=== PATIENT | female | born 1945 | race Caucasian/White ===

== ENCOUNTER 2021-10-31 08:43 | Observation (INO) | payer MEDICARE, OTHER, SELFPAY ==
[2021-10-31] VITALS (16 sets, daily range): BP systolic 106–141; BP diastolic 51–82; PULSE 58–72; RESP 12–18; TEMP 36.1–36.9; O2SAT 92–96; BMI 55.4
[2021-10-31] MEDS: Lactated Ringers 1,000 ML 15 ML IV (07:40)
--- NOTE | 2021-10-31 08:40 | PN.ORTHO_ITS ---
Subjective Subjective The patient was seen and examined postoperatively in the PACU. She is resting comfortably. Her pain is controlled. She denies any acute numbness tingling or weakness. Objective Data Objective Data Vital Signs: Vital Signs Temp Pulse Resp BP Pulse Ox 98.4 F 63 16 139/82 H 96 10/31/21 08:05 10/31/21 08:05 10/31/21 08:05 10/31/21 08:05 10/31/21 08:05 Oxygen Delivery Method Room Air Weight: 293 lb 3.437 oz Body Mass Index (BMI) 55.4 Lab / Micro Data Result Diagrams: 11/01/21 06:15 11/01/21 06:15 Physical Exam Const alert, oriented x3 and no apparent distress General Appearance: cooperative and comfortable HEENT normocephalic and head/scalp atraumatic Eyes EOMs intact bilaterally and conjunctivae normal Neck full ROM General: normal visual inspection Chest inspection of chest normal and palpation of chest normal Resp normal respiratory effort and normal air movement Cardio regular rate, regular rhythm and peripheral pulses 2+ throughout GI soft to palpation, non-tender and non-distended Back/Spine Back/Spine Narrative: Dressings clean dry and intact Cervical Spine: cervical ROM normal Thoracic Spine / Upper Back: normal to inspection Lumbar Spine / Lower Back: normal to inspection Extremity normal to inspection, full ROM, normal capillary refill, no clubbing, cyanosis or edema and no calf tenderness Skin no rashes or lesions noted General Skin Exam: no breakdown Neuro oriented x3, CN's II-XII intact bilaterally, moves all extremities, no focal motor deficits, no sensory deficits noted and deep tendon reflexes 2+ bilaterall y Motor Exam: strength 5/5 throughout and muscle tone normal throughout Assessment & Plan Assessment/Plan (1) Lumbar spondylosis: PLAN: Okay to admit for observation See orders Discharge planning, likely home tomorrow
--- NOTE | 2021-10-31 08:40 | PCM.OPRPT ---
Problems Associated Problem List Diagnoses (1) Lumbar spondylosis: Report of Operation Date of Procedure: 10/31/21 Pre-Operative Diagnosis: 1. Lumbar stenosis, spondylosis 2. Chronic back pain Post-Operative Diagnosis: 1. Lumbar stenosis, spondylosis 2. Chronic back pain Surgery/Procedure Performed:: 1. T9-10 partial bilateral laminectomies 2. Dorsal column stimulator paddle lead placement 3. Subcutaneous placement of dorsal column stimulator generator 4. 1 hour of complex programming postoperatively 5. Neurophysiologic monitoring bilateral upper and bilateral lower extremities Description of Surgical Findings:: The patient is a 75-year-old female with intractable back and leg pain. The patient has tried and failed nonoperative treatments including medications, physical therapy and injections. She is opted for operative intervention understanding the risk to include but not limited to bleeding, infection, damage to nerves arteries and veins, possibility of spinal fluid leak, paralysis, nerve palsy, hardware failure, continued pain, need for further surgery, deep vein thrombosis, pulmonary embolism, risk of stroke, heart attack or . The patient was identified in the preoperative holding area. There she received preoperative IV antibiotics Ancef and was then transferred to the operating suite. Once in the operating suite after general endotracheal anesthesia was established the patient was transferred to the [place] operating table in the prone position. All bony prominences were padded accordingly. The thoracolumbar spine was prepped and draped in a standard surgical fashion. An incision was made over the thoracolumbar spine centered over the T9-10 interlaminar space and taken down to the thoracic fascia. The fascia was divided and subperiosteal dissection was taken down to the level of the bilateral T9-10 facet joints. Partial bilateral laminectomies were performed at the T9-10 interspace with the inferior part of the lamina of T9 and the superior part of the lamina of T10. At this point a paddle lead was placed spanning from T8 inferiorly. It was then anchored to the fascia using standard anchors with silk suture. A second incision was made over the right iliolumbar region for the battery pocket. Wires from the stimulator were then passed subcutaneously with a passing device to the battery pocket and connected to a new battery/generator. Both incisions were then thoroughly irrigated and closed with #1 Vicryl for the fascia, 2-0 Vicryl for subcutaneous, and 2-0 nylon for skin. A sterile dressing was applied with 4 x 4's ABD and tape. Sponge instrument and needle counts were correct at the end of the case. Neurophysiologic monitoring was maintained at baseline throughout the duration of the case. The patient was extubated and taken to the PACU without incident. Then 1 hour was spent with complex programming with the patient recovered Surgeon: Aiden Henderson Type of Anesthesia: General Estimated Blood Loss (mL): 30 cc Fluids Replaced: 1200 cc Grafts/Implants Used: [employer] Complications None Admit VTE Documentation VTE Present on Admission: No
--- NOTE | 2021-10-31 08:40 | PCM.DC.SUM ---
Providers Date of Admission: 10/31/21 Primary Care Physician: Dr. Kusum Narvaez MD Reason For Visit: thoracic 9-10 laminectomy Diagnosis Discharge Diagnosis (1) Lumbar spondylosis: Status: Acute Code(s): M47.816 - Spondylosis without myelopathy or radiculopathy, lumbar region Medications at Discharge Home Medications allopurinol 300 mg PO DAILY 10/23/21 atenolol 50 mg PO DAILY 10/23/21 atorvastatin 20 mg PO QHS 10/23/21 baclofen 10 mg PO DAILY 10/23/21 baclofen 20 mg PO QHS 10/23/21 benazepril 20 mg PO QHS 10/23/21 duloxetine [Cymbalta] 60 mg PO BID 10/23/21 lysine 1,000 mg PO DAILY 10/23/21 pantoprazole 40 mg PO DAILY 10/23/21 pregabalin [Lyrica] 200 mg PO DAILY 10/23/21 pregabalin [Lyrica] 400 mg PO QHS 10/23/21 hydrocodone-acetaminophen 1 tab PO Q6H 7 Days #28 tab 10/31/21 Hospital Course Operations - (T9-10 laminectomy, implantation of spinal cord stimulator lead and generator) Summary of Care Provided Minutes Spent on Discharge: 15 Hospital Course: The patient is a 75-year-old female who underwent T9-10 laminectomy with implantation of permanent spinal cord stimulator lead and generator on 10/31/2021. She was subsequently admitted for observation. The hospitalist was consulted for medical management. The patient progressed well. Her pain was controlled and she was mobilizing well. The patient did have a drop in O2 sats on postop day 1. No other significant medical issues were reported. She was subsequently discharged home on 11/01/2021 to follow-up with Dr. Henderson in 3 weeks. Physical Exam Const alert, oriented x3 and no apparent distress General Appearance: cooperative and comfortable HEENT normocephalic and head/scalp atraumatic Eyes EOMs intact bilaterally and conjunctivae normal Neck full ROM General: normal visual inspection Chest inspection of chest normal Resp normal respiratory effort and normal air movement Cardio regular rate and peripheral pulses 2+ throughout GI soft to palpation, non-tender and non-distended Back/Spine Back/Spine Narrative: Dressings clean dry and intact. Incisions well approximated with interrupted sutures in place. No tenderness erythema drainage or fluctuance Cervical Spine: cervical ROM normal Thoracic Spine / Upper Back: normal to inspection Lumbar Spine / Lower Back: normal to inspection Extremity normal to inspection, full ROM, normal capillary refill, no clubbing, cyanosis or edema and no calf tenderness Skin no rashes or lesions noted General Skin Exam: no breakdown Neuro oriented x3, CN's II-XII intact bilaterally, moves all extremities, no focal motor deficits, no sensory deficits noted and deep tendon reflexes 2+ bilaterally Motor Exam: strength 5/5 throughout and muscle tone normal throughout Weight / BMI Weight Weight: 293 lb 3.437 oz Body Mass Index (BMI) 55.4 ABG / Lab / Microbiology Data Result Diagrams: 11/01/21 06:15 11/01/21 06:15 D/C Instructions Discharge Diet: No restrictions Lifting Restricted to (Lbs): 5 Lifting Restrictions: No bending, twisting, or lifting greater than 5 pounds. No reaching arms a Call your doctor if your incision/area has: Continuous Slow Oozing, Sudden Increased Bleeding, Increased Pain/ Swelling, Increased Redness, Foul Smelling Discharge and Swelling at the incision site Call your doctor if you observe: Fever of 101 or Higher, Coldness, Increased Pain, Numbness or Tingling, Change in Color, Inability to urinate, Inability to have a bowel movement, Using more than 1 pad per hour, Shortness of breath, Dizziness, Fainting spells, Swelling in the ankles, Chest pain, Prolonged hiccupping, Increased palpitations (irregular heartbeat), Calf discomfort and Uncontrolled pain Remove Dressing in: Daily Cleanse incision/area with: Do not get Incision Wet and Keep Dressing Clean & Dry Additional Dressing/Incision Instructions: Change dressing daily. Iodine to incision, gauze and tape. [place] dressing to shower Please Follow Up With: Aiden Henderson DO When: 3 weeks Meaningful Use Info Meaningful Use Diagnoses (Choose all that apply): None applicable Discharge Plan Admission Admit Date/Time: 10/31/21 08:43 Attending Provider: Aiden Henderson Primary Care Provider: Kusum Narvaez Consulting Providers: Isidro Claire Instructions Additional Instructions / Restrictions: 1. During your procedure, you received sedation through your IV. Please follow these instructions for the next 24 hours: Do not drive a motor vehicle, do not drink any alcoholic beverages, and do not sign any legal documents or make personal or business decisions. A responsible adult should stay with you at least 6 hours after the procedure. 2. Keep your surgical site/incision clean and the dressing dry and intact. You may sponge bathe, but no showering or sitting in a bathtub during your trial or for one week after the permanent implant. You may use an ice pack at the surgical site to reduce any swelling or discomfort. 3. Monitor the incision site for any signs or symptoms of infection. Watch for redness, excessive swelling or drainage, or continued pain at the incision site after 3 days. Contact your physician immediately for a fever, chills or a temperature of 101.5? F or greater. 4. Take your medication exactly as prescribed by your physician. Do not attempt to wean yourself off any of your medications even though your pain is improving. This process needs to be carefully monitored by your doctor. Take any antibiotics prescribed exactly as directed and until they are gone. 5. Avoid stretching, bending, pulling, twisting or any sudden movements. Do not bend or twist at the waist. Do not raise your arms above your head; however, you may brush your hair or scratch your head, but nothing higher than that. Any movements higher than that could cause your electrode wires to move from their current position. No not lie on your stomach. Do not bend at the waist to put your shoes on; you must lift your legs up to do this. 6. No lifting greater than 5 pounds. A gallon of milk weighs more than 5 pounds, so you may not lift this. Try to be careful. Any falls could dislodge the leads. 7. Do not operate a motor vehicle, equipment or a power tool while your stimulator is on. If you need to use any equipment, you must turn your stimulator off first. As a passenger in a motor vehicle, you may use your stimulator. 8. Do not have any manipulation done by a chiropractor or any other physician without first consulting with the physician who placed your spinal cord stimulator. 9. Without movement, you may note changes in the intensity of the stimulator. For example, you may notice a different stimulation when you are standing than when you are sitting or lying down. This is normal the first few weeks following the implant and will stabilize over time. 10. Please contact our office if you are even scheduled for a CT scan or an MRI. 11. Please call us if you have any questions, problems or concerns. Discharge Orders/Prescriptions Prescriptions: New hydrocodone-acetaminophen 5-325 mg tablet 1 tab PO Q6H 7 Days Qty: 28 RF: 0 Continued atorvastatin 20 mg Tablet 20 mg PO QHS RF: 0 lysine 1,000 mg Tablet 1,000 mg PO DAILY RF: 0 baclofen 10 mg Tablet 10 mg PO DAILY RF: 0 baclofen 10 mg Tablet 20 mg PO QHS RF: 0 pantoprazole 40 mg Tablet,Delayed Release (Dr/Ec) 40 mg PO DAILY RF: 0 benazepril 20 mg Tablet 20 mg PO QHS RF: 0 allopurinol 300 mg Tablet 300 mg PO DAILY RF: 0 atenolol 50 mg Tablet 50 mg PO DAILY RF: 0 duloxetine [Cymbalta] 60 mg Capsule,Delayed Release(Dr/Ec) 60 mg PO BID RF: 0 pregabalin [Lyrica] 200 mg Capsule 200 mg PO DAILY RF: 0 pregabalin [Lyrica] 200 mg Capsule 400 mg PO QHS RF: 0 Referrals / Follow Up: Aiden Henderson DO [STAFF PHYSICIAN] - Kusum Narvaez MD [Primary Care Provider] -
--- NOTE | 2021-10-31 09:15 | RAD_ITS ---
STUDY: X-RAY - LUMBAR SPINE REASON FOR EXAM: Female, 75 years old. T9-T10 LAMINECTOMY TECHNIQUE: AP fluoroscopic view(s) of the lumbar spine were obtained. 6 images. 31.6 seconds of fluoroscopy time. COMPARISON: None FINDINGS: Neurostimulator leads overlie the lower thoracic spine extending from approximately T7-T8 to T9-T10 level. RAD/Spine 1 View Any Level IMPRESSION: Fluoroscopic guidance for neurostimulator lead insertion. Electronically Signed: Silas Palomino MD ([place]) at 18:51 EDT ,
[2021-10-31] MEDS: Cefazolin 2 GM in 0.9% Normal Saline 100 ML IV (09:38)
[2021-10-31] MEDS: THROMBIN (RECOMBINANT) 20,000 UNIT VIAL 20000 UNIT TOPICAL (10:00)
[2021-10-31] MEDS: Lactated Ringers 1,000 ML 100 ML IV ×2 (10:46→16:17)
--- NOTE | 2021-10-31 15:25 | PCM.CONS.GEN ---
Assessment & Plan Assessment/Plan (1) Lumbar spondylosis: PLAN: 1. 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 Henderson. She had 1 hour complex neurophysiologic monitoring and programming. Continue in splint with spirometry. Patient had Coello catheter monitor urine output. Patient complain of lower abdominal wall pain probably positional. CK ordered. Patient on Lyrica and duloxetine continued. Pain control. PT and OT. 2. Hypertension: Blood pressure in normal range 116/51. Heart rate 63.9. EKG recent shows normal sinus rhythm 58 beats per hour. Patient does not have chronic cardiac disease or stroke or peripheral arterial disease. On lisinopril and atenolol. 3. Chronic intermittent stable asthma: No recent exacerbation. Continue incentive spirometry. DuoNeb ordered as needed for shortness of breath or wheezing. 4. Dyslipidemia: On atorvastatin. 5. VTE prophylaxis: Bilateral SCDs HPI Consult Data Date of Consult: 10/31/21 HPI Narrative Reason for Consultation: Perioperative management of multiple comorbidities. HPI Narrative: KRISTA WESTON, is a 75 F has history of significant medical and surgical history of asthma, chronic back pain, chronic urge bladder incontinence, dyslipidemia, gout, GERD and hypertension. She denies chronic heart disease including coronary artery disease, heart failure or arrhythmia or valvular heart disease. Denies a stroke and diabetes mellitus. Patient has asthma but no recent exacerbation. She has history of small bowel obstruction which required exploration laparotomy and adhesiolysis. Patient also had bilateral inguinal hernia repair. Patient complaining of bilateral lower abdominal pain looks most probably due to positional from surgery. No shortness of breath or chest pain, palpitation. Patient has Coello catheter, seems just emptied in PACU. Did not pass flatus. No fever Patient has history of chronic back pain with radiation to the leg, sciatica in nature, right worse than left. She also has bilateral leg weakness/numbness due to chronic back pain. It was admitted to [facility] by Dr. Henderson after elective surgery of lumbar stenosis and spondylosis causing chronic back pain. [facility] Medical History (Updated 10/31/21 @ 08:[address] Aiden Henderson, DO) Alcohol use Anxiety Asthma Back pain Balance problem Bladder disease Difficulty swallowing Gastric reflux Gout High cholesterol History of edema History of pain when walking History of rheumatic fever Hx of lipoma Hx of small bowel obstruction Hypertension Injury of back Injury of head and neck Leg cramps Loss of hearing Neuropathy Non-smoker Restless legs Shortness of breath on exertion Spinal cord stimulator status Uses wheelchair Walker as ambulation aid Wears glasses Home Medications allopurinol 300 mg PO DAILY 10/23/21 [History Last Taken Unknown] atenolol 50 mg PO DAILY 10/23/21 [History Last Taken Unknown] atorvastatin 20 mg PO QHS 10/23/21 [History Last Taken Unknown] baclofen 10 mg PO DAILY 10/23/21 [History Last Taken Unknown] baclofen 20 mg PO QHS 10/23/21 [History Last Taken Unknown] benazepril 20 mg PO QHS 10/23/21 [History Last Taken Unknown] duloxetine [Cymbalta] 60 mg PO BID 10/23/21 [History Last Taken Unknown] lysine 1,000 mg PO DAILY 10/23/21 [History Last Taken Unknown] pantoprazole 40 mg PO DAILY 10/23/21 [History Last Taken Unknown] pregabalin [Lyrica] 200 mg PO DAILY 10/23/21 [History Last Taken Unknown] pregabalin [Lyrica] 400 mg PO QHS 10/23/21 [History Last Taken Unknown] hydrocodone-acetaminophen 1 tab PO Q6H 7 Days #28 tab 10/31/21 [Rx Last Taken Unknown] Allergy/AdvReac Type Severity Reaction Status Date / Time adhesive tape AdvReac BLISTERS Verified 10/31/21 14:37 Surgical History History of carpal tunnel surgery of left wrist History of carpal tunnel surgery of right wrist History of cystoscopy History of esophagogastroduodenoscopy (EGD) History of lumbar fusion History of tonsillectomy and adenoidectomy Hx laparoscopic cholecystectomy Hx of appendectomy Hx of colonoscopy Hx of hysterectomy Hx of inguinal hernia repair Hx of left cataract extraction Hx of removal of cyst Hx of right cataract extraction Hx of total knee arthroplasty Hx of total knee arthroplasty Hx of umbilical hernia repair Social History Smoking Status: Never smoker ROS ROS Narrative Constitutional: Chronic weakness. Complain of pain over bilateral lower abdominal wall seems positional. Prolonged prone positioning HEENT: Reports systems reviewed and no addt'l complaints, except as documented Respiratory/Chest: Denies chest pain, shortness of breath at rest or with exertion Gastrointestinal: Denies coffee ground emesis, hematemesis or vomiting Genitourinary: Chronic urge incontinence. Denies burning urination or new urinary tract symptoms Musculoskeletal: Bilateral lower back pain, sciatic in nature as described in HPI. Chronic numbness and tingling. Neurologic: Chronic gait abnormality. Chronic neuropathy and lower leg weakness. Denies seizure-like activity skin: No ulcer. No rash Endocrinology: Reports systems reviewed and no addt'l complaints, except as documented Hematologic/Lymphatic: Reports systems reviewed and no addt'l complaints, except as documented Rest 14 ROS are negative except as mentioned in HPI Physical Exam Narrative General: Alert, Oriented x3, Cooperative, morbid obesity BMI 55.4 kg metered square HEENT: Atraumatic, PERRLA, EOMI, Normocephalic Oral: Deep oropharyngeal structures not clearly visualized. No Gingival or Mucosal Lesions/ Ulcerations Neck: Supple, No JVD, Negative Carotid Bruits Lungs: Air entry diminished in bilateral lung bases. No crepitation/rhonchi Cardiovascular: Regular rate, Regular Rhythm, Normal S1, Normal S2, No murmurs Abdomen: Bowel Sounds Present, Soft, Non Tender, Non-Distended. Bilateral inguinal surgical scar. Laparotomy scar. : Chronic urge incontinence. Coello catheter. No renal angle tenderness. No suprapubic tenderness. Extremities: No edema, Capillary Refill Less than 3 Seconds Skin: No rashes, No breakdown Musculoskeletal/spine: Surgical dressing over lower thoracic area and lumbar area dry. No drainage. Perioperative tenderness of muscle. Neurological: Cranial nerves II-XII grossly intact, DTR 2+/4, muscle strength not checked due to postop day 0. Psych/Mental Status: Normal Affect, Appropriate. Charges/Coding Visit Charges Office Visits / Consults: 94851 OP Consult L4
[2021-10-31] MEDS: Morphine 4 MG/ML Syringe IV (15:54)
[2021-10-31] MEDS: 0.9% Saline Lock 10 ML Syringe IV (16:11)
[2021-10-31 17:11] LABS: Hematocrit 34.7 % (37-47); Hemoglobin 12.1 g/dL (12.0-15.0)
[2021-10-31 17:41] LABS: CPK Total, Creatine Kinase 280 U/L (26-192)
[2021-10-31] MEDS: DULoxetine Hcl 60 MG Capsule PO (21:17)
[2021-10-31] MEDS: Baclofen 10 MG Tablet 20 MG PO (21:17)
[2021-10-31] MEDS: Atorvastatin Calcium 20 MG Tablet PO (21:17)
[2021-10-31] MEDS: Lisinopril 20 MG Tablet PO (21:18)
[2021-10-31] MEDS: Pregabalin 50 MG Capsule 100 MG PO (21:25)
[2021-10-31] MEDS: Pregabalin 75 MG Capsule 300 MG PO (21:25)
[2021-10-31] MEDS: oxyCODONE 5 MG Tablet PO (21:26)
[2021-11-01] VITALS (8 sets, daily range): BP systolic 96–115; BP diastolic 52–69; PULSE 70–110; RESP 16–18; TEMP 36.7–37.1; O2SAT 82–98
[2021-11-01] MEDS: Lactated Ringers 1,000 ML 100 ML IV (02:24)
[2021-11-01 07:29] LABS: Anion Gap 4 (5-15); BUN 20 mg/dL (7-18); BUN/Creat Ratio 19.2 RATIO (10-20); Calcium,Total 7.9 mg/dL (8.5-10.1); Chloride 108 mmol/L (98-107); Creatinine, Serum 1.04 mg/dL (0.55-1.02); EST Glomerular Filtration Rate 55 mL/min (>60); Est Glom Filt Rate - Afr Amer 66 mL/min (>60); Estimated Creatinine Clearance 34.18 ml/min; Glucose 124 mg/dL (74-106); Potassium 4.7 mmol/L (3.5-5.1); Sodium Level 137 mmol/L (136-145)
--- NOTE | 2021-11-01 07:31 | PN.HOSP_ITS ---
Subjective Subjective Patient abdominal pain has much improved although still complain of mild soreness. Coello catheter removed. Patient has not passed bowel movement but has passed flatus. Objective Data Objective Data Vital Signs: Vital Signs Temp Pulse Resp BP Pulse Ox 98.0 F 80 18 115/69 97 11/01/21 02:51 11/01/21 06:00 11/01/21 02:51 11/01/21 02:51 11/01/21 02:51 Oxygen Flow Rate (L/min) 2 Oxygen Delivery Method Nasal Cannula Weight: 293 lb 3.437 oz Body Mass Index (BMI) 55.4 Intake & Output: Intake and Output for Last 24 Hours 10/30/21 10/31/21 11/01/21 23:59 23:59 23:59 Intake Total 1980.00 / 2220.00 300 / 300 Output Total 465 / 640 400 / 400 Balance 1515.00 / 1580.00 -100 / -100 Lab / Micro Data Result Diagrams: 11/01/21 06:15 11/01/21 06:15 Labs: Laboratory Results - last 24 hr 10/31/21 16:45: Total Creatine Kinase 280 H 10/31/21 16:55: Hgb 12.1, Hct 34.7 L 11/01/21 06:15: Sodium 137, Potassium 4.7, Chloride 108 H, Carbon Dioxide 25.0, Anion Gap 4 L, BUN 20 H, Creatinine 1.04 H, Estim Creat Clear Calc 34.18, Est GFR (MDRD) Af Amer 66, Est GFR (MDRD) Non-Af 55 L, BUN/Creatinine Ratio 19.2, Glucose 124 H, Calcium 7.9 L Radiography Diagnostic Testing: Radiology Impression Spine X-Ray 10/31/21 09:15 IMPRESSION: Fluoroscopic guidance for neurostimulator lead insertion. Electronically Signed: Silas Palomino MD ([place]) at 18:51 EDT , Physical Exam Narrative Seen and examined. Patient had some questions regarding to postsurgical care for Dr. Henderson. Communicated to the nurse. General: Alert, Oriented x3, Cooperative, morbid obesity BMI 55.4 kg metered square HEENT: Atraumatic, PERRLA, EOMI, Normocephalic Oral: Deep oropharyngeal structures not clearly visualized. No Gingival or Muco stefanie Lesions/ Ulcerations Neck: Supple, No JVD, Negative Carotid Bruits Lungs: Air entry diminished in bilateral lung bases. No crepitation/rhonchi Cardiovascular: Regular rate, Regular Rhythm, Normal S1, Normal S2, No murmurs Abdomen: Bowel Sounds Present, Soft, Non Tender, Non-Distended. Bilateral inguinal surgical scar. Laparotomy scar. : Chronic urge incontinence. Coello catheter discontinued. No renal angle tenderness. No suprapubic tenderness. Extremities: No edema, Capillary Refill Less than 3 Seconds Skin: No rashes, No breakdown Musculoskeletal/spine: Surgical dressing over lower thoracic area and lumbar area dry. No surgical drain. Mild expected perioperative tenderness of muscle. Neurological: Cranial nerves II-XII grossly intact, DTR 2+/4, muscle strength not checked due to postop day 0. Psych/Mental Status: Normal Affect, Appropriate. Assessment & Plan Assessment/Plan (1) Lumbar spondylosis: PLAN: 1. 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 Henderson. She had 1 hour complex neurophysiologic monitoring and programming. Continue in splint with spirometry. Patient had Coello catheter monitor urine output. Patient complain of lower abdominal wall pain probably positional. CK ordered. Patient on Lyrica and duloxetine continued. Pain control. PT and OT. 11/01: CK is mildly elevated 280. Patient was given IV fluid normal sent 500 mL for saline diuresis. Wait for spontaneous voiding of urine after Coello catheter removal. Patient has some questions regarding postop care with Dr. Henderson, communicated to the nurse. Follow-up with him as instructed. 2. Hypertension: Blood pressure in normal range 116/51. Heart rate 63.9. EKG recent shows normal sinus rhythm 58 beats per hour. Patient does not have chronic cardiac disease or stroke or peripheral arterial disease. On lisinopril and atenolol. 3. Chronic intermittent stable asthma: No recent exacerbation. Continue incentive spirometry. DuoNeb ordered as needed for shortness of breath or wheezing. 4. Dyslipidemia: On atorvastatin. 5. VTE prophylaxis: Bilateral SCDs Patient is going to be discharged. Hospital team will sign off. Charges/Coding Visit Charges OBSV E&M: 97312 Subsequent observation care L2
[2021-11-01] MEDS: Allopurinol 300 MG Tablet PO (08:06)
[2021-11-01] MEDS: DULoxetine Hcl 60 MG Capsule PO (08:06)
[2021-11-01] MEDS: Baclofen 10 MG Tablet PO (08:06)
[2021-11-01] MEDS: Pantoprazole Sodium 40 MG Tablet PO (08:06)
[2021-11-01] MEDS: Pregabalin 50 MG Capsule 200 MG PO (08:10)
--- NOTE | 2021-11-01 11:30 | CASEMGMT ---
RN CM Face to Face with patient for initial transition planning/care coordination assessment. RN CM introduced self and role at [facility]. Patient sitting in chair, alert and oriented. Patient willing to participate in assessment and is able to answer all questions appropriately. Care providers, pharmacy, and demographics verified. Patient wishes to discharge home, denies need for home health at this time. Patient states she has no further needs or concerns at this time. CM to follow for discharge planning needs that may arise. PCP: Brice Specialists: Rod Henderson Pharmacy: [facility] Benef[facility]: yes Living Will/HPOA: yes, Hiram Kellogg LNOK: Living Arrangements: Patient lives with in a mobile home with 5 steps and railing x2 to enter the home. Patient states she was independent for self care prior to surgery Transportation: DME/HHC: Patient states she has shower chair, grab bars, walker, rollator, nebulizer, and step stool with railing at home. No previous HHC or SNF. Disposition Plan: Patient to discharge home with family support and follow-up plans in place. Nenita HERNANDEZ, RN, CM
== END 2021-11-01 13:21 | disposition home or self-care (01) ==
LOC: SDC 12:18 → MS3 12:18
PROVIDERS: Internal Medicine; Admitting Provider Orthopaedic Surgery; PCP Internal Medicine Infectious Disease; Referring Provider Orthopaedic Surgery; Visit Provider Orthopaedic Surgery
PROC: (CPT 63655; principal; 2021-10-31 08:45)
DX: M48.061 Spinal stenosis, lumbar region without neurogenic claudication (principal); E66.01 Morbid (severe) obesity due to excess calories; Z68.43 Body mass index [BMI] 50.0-59.9, adult; G89.29 Other chronic pain; K21.9 Gastro-esophageal reflux disease without esophagitis; M10.9 Gout, unspecified; I10 Essential (primary) hypertension; J45.909 Unspecified asthma, uncomplicated; E78.5 Hyperlipidemia, unspecified; N39.41 Urge incontinence; M47.816 Spondylosis without myelopathy or radiculopathy, lumbar region; Z79.899 Other long term (current) drug therapy; M79.7 Fibromyalgia; M19.90 Unspecified osteoarthritis, unspecified site; R20.2 Paresthesia of skin; M51.36 Other intervertebral disc degeneration, lumbar region; M96.1 Postlaminectomy syndrome, not elsewhere classified
CPT/HCPCS: 63685; 63655; 00300; 36415; 72020; 76000; 80048; 82550; 85014; 85018; 96361; 96365; 96366; 96375; 97162; 99218; C1778; C1820; J7040; J7120; A4216; G0378; J2405; J3490

== ENCOUNTER 2021-11-28 09:34 | Day surgery (SDC) | payer MEDICARE, OTHER, SELFPAY ==
[2021-11-28] VITALS (9 sets, daily range): BP systolic 91–156; BP diastolic 29–97; PULSE 60–77; RESP 15–20; TEMP 36–37; O2SAT 92–100; BMI 55.7
--- NOTE | 2021-11-28 09:51 | PCM.OPRPT ---
Problems Associated Problem List Diagnoses (1) Lumbar spondylosis: (2) Delayed surgical wound healing: Report of Operation Date of Procedure: 11/28/21 Pre-Operative Diagnosis: 1. Delayed wound healing, thoracic, status post spinal cord stimulator implantation Post-Operative Diagnosis: 1. Delayed wound healing, thoracic, status post final cord stimulator implantation Surgery/Procedure Performed:: 1. Thoracic irrigation and debridement, wound exploration, primary closure Description of Surgical Findings:: The patient is a 76-year-old female who underwent implantation of a permanent spinal cord stimulator on 10/31/2021. She followed up in my clinic and was found to have delayed wound healing of the thoracic incision. After discussing the risk benefits and alternatives I recommended she undergo return to the OR for thoracic irrigation, debridement, wound exploration, primary closure. The patient opted for operative intervention understanding the risk to include but not limited to infection, bleeding, damage to nerves arteries and veins, possibility of spinal fluid leak, paralysis, continued pain, need for further surgery, deep vein thrombosis, pulmonary embolism, heart attack, risk of stroke or . The patient was identified in the preoperative holding area. There she received preoperative IV antibiotics, Ancef, and was then transferred to the operative suite. Once in the operative suite after general endotracheal anesthesia was established the patient was transferred to the operating table in the prone position. All bony prominences were padded accordingly. The thoracic spine was prepped and draped in a standard surgical fashion. The previous thoracic midline incision was reopened and taken down to the level of the fascia. A small amount of serous fluid was encountered. This was cultured and sent to the lab. The incision was thoroughly irrigated. Any necrotic tissue was debrided. A 15 blade was used to freshen up the wound margins. Then the fascia was reopened. No significant drainage, purulence, or necrotic tissue was noted. The incision was thoroughly irrigated. The fascia was then closed with #1 Vicryl, subcutaneous with 2-0 Vicryl and skin with 2-0 nylon. A sterile dressing was applied with 4 x 4's ABD and tape. Sponge instrument and needle counts were correct at the end of the case. The patient was extubated and taken to the PACU without incident. Surgeon: Aiden Henderson Type of Anesthesia: General Specimen's removed: Superficial and deep cultures Estimated Blood Loss (mL): 20cc Fluids Replaced: 300cc Complications None Admit VTE Documentation VTE Present on Admission: No
--- NOTE | 2021-11-28 09:51 | PCM.PN.ORT ---
Subjective Subjective The patient was seen and examined postoperatively. She is resting comfortably. Her pain is controlled. She denies any acute numbness tingling weakness or changes in bowel or bladder function. A&O, NAD EOMI, NCAT Abdomen soft and nontender Dressing clean dry and intact Regular rate and rhythm Clear to auscultation bilaterally Extremities: Sensation and motor are intact grossly without focal deficit, pulses and reflexes are normal and symmetric, no tenderness to palpation or edema. Assessment & Plan Assessment/Plan (1) Lumbar spondylosis: PLAN: Okay to discharge home See discharge instructions Follow-up with Dr. Henderson as scheduled (2) Delayed surgical wound healing:
[2021-11-28] MEDS: Lactated Ringers 1,000 ML 15 ML IV (10:06)
[2021-11-28] MEDS: Bupivacaine Mpf 0.5% 30 ML VIAL (11:19)
== END 2021-11-28 14:59 | disposition home or self-care (01) ==
LOC: SDC 09:34 → AC 09:38
PROVIDERS: PCP Internal Medicine Infectious Disease; Referring Provider Orthopaedic Surgery; Visit Provider Orthopaedic Surgery
PROC: (CPT 22830; principal; 2021-11-28 10:50)
DX: M47.816 Spondylosis without myelopathy or radiculopathy, lumbar region (principal); M46.96 Unspecified inflammatory spondylopathy, lumbar region; T81.89XA Other complications of procedures, not elsewhere classified, initial encounter; M47.26 Other spondylosis with radiculopathy, lumbar region; M96.1 Postlaminectomy syndrome, not elsewhere classified; M48.061 Spinal stenosis, lumbar region without neurogenic claudication; M51.36 Other intervertebral disc degeneration, lumbar region; J45.909 Unspecified asthma, uncomplicated; I10 Essential (primary) hypertension; E78.00 Pure hypercholesterolemia, unspecified; K21.9 Gastro-esophageal reflux disease without esophagitis; M10.9 Gout, unspecified; M79.7 Fibromyalgia
CPT/HCPCS: 11043; 00300; 87070; 87075; 87205; J7120; J2405

== ENCOUNTER 2022-09-01 10:33 | Day surgery (SDC) | payer MEDICARE, OTHER, SELFPAY ==
--- NOTE | 2022-09-01 11:20 | OP.PCM_ITS ---
Report of Operation Date of Procedure: 09/01/22 Description of Surgical Findings:: PREOPERATIVE DIAGNOSES:?Cervical radiculopathy, cervical degenerative disc disease, cervical spinal stenosis POSTOPERATIVE DIAGNOSES:?Cervical radiculopathy, cervical degenerative disc disease, cervical spinal stenosis PROCEDURE PERFORMED:?Diagnostic/therapeutic?cervical epidural steroid injection, interlaminar at C7-T1 under fluoroscopic guidance. ANESTHESIA:? Local. BLOOD LOSS:? Minimal. COMPLICATIONS:? None. DESCRIPTION OF PROCEDURE:? History and physical of today was reviewed.? Risks and benefits of the procedure were explained.? The patient understood and agreed to proceed.? Informed consent was obtained.? IV inserted per routine protocol.? The patient was taken to the operating room and placed in the prone position with a pillow positioned underneath the chest.? The neck area was prepped and draped in a sterile fashion using iodine x3.? Under fluoroscopy guidance on an AP view, the C7-T1 interlaminar space was identified.? The skin and subcutaneous tissue was anesthetized with approximately 3 mL of 1% lidocaine using a 25-gauge regular needle.? Under direct visualization on fluoroscopy, on AP view, using a 20-gauge 2-1/2-inch Tuohy needle, the needle was advanced via the skin.? The tip of the needle was maneuvered and directed towards the interlaminar space at C7- T1.? Loss of resistance technique was carried to air.? Loss of resistance technique was encountered.? Once encountered, after negative aspiration for blood and CSF, a total of 1 mL of contrast was injected to confirm correct placement of the needle as well as cephalocaudal spread of the contrast.? Confirmation was obtained on AP as well as lateral view.? After repeated negative aspiration and confirmation, a total of 3 mL of preservative-free normal saline and 80 mg of Depo-Medrol was injected easily.? The needle was then removed intact.? The patient experienced no sign or symptoms of intrathecal or intravascular injection.? The patient experienced no paresthesia.? The procedure was completed without any apparent difficulty or any complications.? The patient appeared to tolerate it well. ASSESSMENT AND PLAN:? This is a 64-year-old male with cervical radiculopathy, cervical degenerative disc disease, diagnostic/therapeutic cervical spinal stenosis status post cerv ical epidural steroid injection interlaminar at C7-T1 under fluoroscopic guidance, patient will continue his current medications, patient will follow approximately 2 weeks for reevaluation.
[2022-09-01 12:02] VITALS: BP 134/71; PULSE 62; RESP 16; TEMP 37.4; O2SAT 96; BMI 55.7
--- NOTE | 2022-09-01 12:16 | RAD_ITS ---
PROCEDURE: Cervical epidural. DATE OF EXAMINATION: September 01, 2022. INDICATION: Female, 76 years old. Cervical pain. FLUOROSCOPY TIME (if supplied): (6 seconds) minutes/seconds. 5 images were obtained. RAD/Spine 1 View Any Level IMPRESSION: Intraoperative imaging provided for cervical epidural block. Electronically Signed: Sam Blackmon MD at 13:57 EDT ,
[2022-09-01] MEDS: MethylPREDNISolone Acetate 80 MG/ML Vial (12:21)
--- NOTE | 2022-09-01 12:30 | OP.PCM_ITS ---
Report of Operation Date of Procedure: 09/01/22 Description of Surgical Findings:: PREOPERATIVE DIAGNOSES:?Cervical radiculopathy, cervical degenerative disc disease, cervical spinal stenosis POSTOPERATIVE DIAGNOSES:?Cervical radiculopathy, cervical degenerative disc disease, cervical spinal stenosis PROCEDURE PERFORMED:?Diagnostic/therapeutic?cervical epidural steroid injection, interlaminar at C7-T1 under fluoroscopic guidance. ANESTHESIA:? Local. BLOOD LOSS:? Minimal. COMPLICATIONS:? None. DESCRIPTION OF PROCEDURE:? History and physical of today was reviewed.? Risks and benefits of the procedure were explained.? The patient understood and agreed to proceed.? Informed consent was obtained.? IV inserted per routine protocol.? The patient was taken to the operating room and placed in the prone position with a pillow positioned underneath the chest.? The neck area was prepped and draped in a sterile fashion using iodine x3.? Under fluoroscopy guidance on an AP view, the C7-T1 interlaminar space was identified.? The skin and subcutaneous tissue was anesthetized with approximately 3 mL of 1% lidocaine using a 25-gauge regular needle.? Under direct visualization on fluoroscopy, on AP view, using a 20-gauge 2-1/2-inch Tuohy needle, the needle was advanced via the skin.? The tip of the needle was maneuvered and directed towards the interlaminar space at C7- T1.? Loss of resistance technique was carried to air.? Loss of resistance technique was encountered.? Once encountered, after negative aspiration for blood and CSF, a total of 1 mL of contrast was injected to confirm correct placement of the needle as well as cephalocaudal spread of the contrast.? Confirmation was obtained on AP as well as lateral view.? After repeated negative aspiration and confirmation, a total of 3 mL of preservative-free normal saline and 80 mg of Depo-Medrol was injected easily.? The needle was then removed intact.? The patient experienced no sign or symptoms of intrathecal or intravascular injection.? The patient experienced no paresthesia.? The procedure was completed without any apparent difficulty or any complications.? The patient appeared to tolerate it well. ASSESSMENT AND PLAN:? This is a 76-year-old female with cervical radiculopathy, cervical degenerative disc disease, diagnostic/therapeutic cervical spinal stenosis status post ce rvical epidural steroid injection interlaminar at C7-T1 under fluoroscopic guidance, patient will continue his current medications, patient will follow approximately 2 weeks for reevaluation.
== END 2022-09-01 12:57 | disposition home or self-care (01) ==
LOC: SDC 10:37 → AC 11:30
PROVIDERS: PCP Internal Medicine Infectious Disease; Referring Provider Anesthesiology Pain Medicine; Visit Provider Anesthesiology Pain Medicine
PROC: 3E0S3BZ Introduction of Anesthetic Agent into Epidural Space, Percutaneous Approach (ICD-10-PCS; CPT 62320; principal; 2022-09-01 11:55)
DX: M50.13 Cervical disc disorder with radiculopathy, cervicothoracic region (principal); M48.02 Spinal stenosis, cervical region; J45.909 Unspecified asthma, uncomplicated; I10 Essential (primary) hypertension
CPT/HCPCS: 64479; 64490; 72020; A4216

== ENCOUNTER 2022-11-03 10:47 | Day surgery (SDC) | payer MEDICARE, OTHER, SELFPAY ==
[2022-11-03] VITALS (8 sets, daily range): BP systolic 113–139; BP diastolic 60–78; PULSE 55–65; RESP 16–18; TEMP 36.4–36.8; O2SAT 93–96; BMI 57.6
[2022-11-03] MEDS: Lactated Ringers 1,000 ML 15 ML IV (11:52)
--- NOTE | 2022-11-03 12:18 | RAD_ITS ---
PROCEDURE: Right L3-L4 transforaminal block. DATE OF EXAMINATION: November 03, 2022. INDICATION: Female, 76 years old. Low back pain. FLUOROSCOPY TIME (if supplied): (22.4 seconds) minutes/seconds. 5 images were obtained. 12.08 mGy RAD/Lumbar Spine 2 or 3 Views IMPRESSION: Intraoperative imaging provided for right L3-L4 transforaminal block. Electronically Signed: Sam Blackmon MD at 15:44 EDT ,
[2022-11-03] MEDS: MethylPREDNISolone Acetate 80 MG/ML Vial (12:24)
[2022-11-03] MEDS: Lidocaine 1% (5 ml sdv) 5 ML Vial (12:25)
--- NOTE | 2022-11-03 13:26 | OP.PCM_ITS ---
Report of Operation Date of Procedure: 11/03/22 Description of Surgical Findings:: PREOPERATIVE DIAGNOSES: 1. Lumbosacral radiculopathy. 2. Lumbosacral degenerative disk disease. 3. Lumbosacral spinal stenosis. POSTOPERATIVE DIAGNOSES: 1. Lumbosacral radiculopathy. 2. Lumbosacral degenerative disk disease. 3. Lumbosacral spinal stenosis. PROCEDURE PERFORMED: Right sided lumbar transforaminal epidural steroid injection, L3-4 and L4-5. ANESTHESIA: MAC. BLOOD LOSS: Minimal. COMPLICATIONS: None. DESCRIPTION OF PROCEDURE: History and physical of today was reviewed. Risks and benefits of the procedure were explained. The patient understood and agreed to proceed. Informed consent was obtained. IV inserted per routine protocol. The patient was taken to the operating room and placed in the prone position with a pillow positioned underneath the abdomen. The right side of his lower back was prepped and draped in a sterile fashion using iodine x3. Under fluoroscopy guidance on oblique view, the L3 through L5 vertebral bodies were visualized. The skin and subcutaneous tissue was anesthetized with approximately 5 mL of 1% lidocaine using a 25-gauge regular needle. Under di rect visualization with fluoroscopy at approximately 35-degree angle, starting on the right L3, ending on the right L5, using a 22-gauge 5-inch spinal needle, the needle was advanced via the skin. The tip of the needle was maneuvered and directed towards the inferior and medial gutter of the transverse process at the superiormost aspect of the neural foramen. Once the tip of the needle was at th e vicinity of the foramen, after negative aspiration for blood or CSF, a total of 1 mL of contrast was injected in divided doses between both levels to confirm correct placement of the needle as well as medial spread. The confirmation was obtained on AP as well as lateral view. After repeated negative aspiration and confirmation on AP as well as lateral view, a total of 6 mL of preservative-free 0.25% Marcaine with 80 mg of Depo-Medrol was injected in divided doses between both levels. The needles were then removed intact. The patient experienced no sign or symptoms of intrathecal or intravascular injection. The patient experienced no paresthesia. The procedure was completed without any apparent difficulty or any complications. The patient appeared to tolerate it well. ASSESSMENT AND PLAN: This is a 76-year-old female with lumbosacral radiculopathy, lumbosacral degenerative disk disease, and lumbosacral spinal stenosis, status post right-sided lumbar transforaminal epidural steroid injection at L3-4 and L4-5. The patient will continue her current medications. The patient will follow up in approximately 2 weeks for reevaluation.
== END 2022-11-03 14:00 | disposition home or self-care (01) ==
LOC: SDC 10:50 → AC 10:53
PROVIDERS: Referring Provider Anesthesiology Pain Medicine; Visit Provider Anesthesiology Pain Medicine
PROC: 3E0S3BZ Introduction of Anesthetic Agent into Epidural Space, Percutaneous Approach (ICD-10-PCS; CPT 64484; principal; 2022-11-03 12:35)
DX: M48.07 Spinal stenosis, lumbosacral region (principal); M51.17 Intervertebral disc disorders with radiculopathy, lumbosacral region; M47.816 Spondylosis without myelopathy or radiculopathy, lumbar region; K21.9 Gastro-esophageal reflux disease without esophagitis; E78.00 Pure hypercholesterolemia, unspecified; M54.2 Cervicalgia; M96.1 Postlaminectomy syndrome, not elsewhere classified; Z79.899 Other long term (current) drug therapy; M47.812 Spondylosis without myelopathy or radiculopathy, cervical region; M25.551 Pain in right hip
CPT/HCPCS: 64484; 64483; 72100; J7120

== ENCOUNTER 2022-12-15 10:58 | Day surgery (SDC) | payer MEDICARE, OTHER, SELFPAY ==
--- NOTE | 2022-12-15 11:10 | RAD_ITS ---
STUDY: X-RAY - SACROILIAC JOINTS REASON FOR EXAM: Female, 45 years old. Intraprocedural digital documentation views of the right sacroiliac injection. TECHNIQUE: A single frontal digital documentation view(s) of the left and right sacroiliac joints were obtained. COMPARISON: None. FINDINGS: Single digital documentation of the shows contrast within the intra-articular portion of each joint. RAD/S-I Jts 3 or More Views IMPRESSION: Intra-articular digital documentation reviewed. Electronically Signed: Mario Frias MD at 13:56 EDT ,
[2022-12-15] MEDS: Lactated Ringers 1,000 ML 15 ML IV (11:29)
[2022-12-15 11:31] VITALS: BP 139/86; PULSE 60; RESP 18; TEMP 36.6; O2SAT 96; BMI 55.5
[2022-12-15] MEDS: Lidocaine 1% (30 ml sdv) 30 ML Vial (11:44)
[2022-12-15] MEDS: MethylPREDNISolone Acetate 80 MG/ML Vial (11:44)
[2022-12-15 11:51] VITALS: BP 126/64; BP 139/86; PULSE 65; RESP 18; TEMP 36.2; O2SAT 96
[2022-12-15 11:55] VITALS: BP 135/77; BP 139/86; PULSE 62; RESP 18; O2SAT 92
[2022-12-15 12:00] VITALS: BP 135/78; BP 139/86; PULSE 64; RESP 16; O2SAT 92
[2022-12-15 12:05] VITALS: BP 122/83; BP 139/86; PULSE 61; RESP 18; TEMP 36.2; O2SAT 95
--- NOTE | 2022-12-15 12:07 | PCM.OPRPT ---
Report of Operation Date of Procedure: 12/15/22 Description of Surgical Findings:: PREOPERATIVE DIAGNOSES: 1. Sacroiliitis. 2. Sacroiliac joint dysfunction. POSTOPERATIVE DIAGNOSES: 1. Sacroiliitis. 2. Sacroiliac joint dysfunction. PROCEDURE PERFORMED: Bilateral sacroiliac joint steroid injection under fluoroscopy guidance. ANESTHESIA: MAC. BLOOD LOSS: Minimal. COMPLICATIONS: None. DESCRIPTION OF PROCEDURE: History and physical of today was reviewed. Risks and benefits of the procedure were explained. The patient understood and agreed to the procedure. Informed consent was obtained. IV inserted per routine protocol. The patient was taken to the operating room and placed in the prone position with a pillow positioned underneath the abdomen. The lower back and buttock area was prepped and draped in a sterile fashion using iodine x3. Under fluoroscopy guidance on an AP view, the bilateral SI joint was visualized. The skin and subcutaneous tissue was anesthetized with approximately 3 mL of 1% lidocaine using a 25-gauge regular needle. Under direct visualization with fluoroscopy at approximately 15-degree angle, using a 22-gauge 3-1/2-inch spinal needle, the needle was advanced via the skin. The tip of the needle was maneuvered and directed towards the inferior one-third of the posterior SI joint. Once the tip of the needle was at the vicinity of the joint, after negative aspiration for blood or CSF, a total of 2 mL of contrast was injected to confirm correct placement of the needle as well as cephalocaudal spread. Confirmation was obtained on AP as well as oblique view. After repeated negative aspiration and confirmation, a total of 9 mL of preservative-free 0.25% Marcaine with 80 mg of Depo-Medrol was injected in and around the SI joint bilaterally in divided doses. The needle was then removed intact. The patient experienced no sign or symptoms of intrathecal or intravascular injection. The patient experienced no paresthesia. The procedure was completed without any apparent difficulty or any complications. The patient appeared to tolerate it well. ASSESSMENT AND PLAN: This is a 77-year-old female with sacroiliitis and SI joint dysfunction status post bilateral sacroiliac joint steroid injection under fluoroscopic guidance, patient will continue her current medications, patient will follow in approximately 2 weeks for reevaluation.
[2022-12-15 12:25] VITALS: BP 139/86
== END 2022-12-15 12:49 | disposition home or self-care (01) ==
LOC: SDC 11:00 → AC 11:02
PROVIDERS: Referring Provider Anesthesiology Pain Medicine; Visit Provider Anesthesiology Pain Medicine
PROC: 3E0U3BZ Introduction of Anesthetic Agent into Joints, Percutaneous Approach (ICD-10-PCS; CPT 64451; principal; 2022-12-15 12:05)
DX: M46.1 Sacroiliitis, not elsewhere classified (principal); M96.1 Postlaminectomy syndrome, not elsewhere classified; M47.817 Spondylosis without myelopathy or radiculopathy, lumbosacral region; M51.37 Other intervertebral disc degeneration, lumbosacral region; Z79.899 Other long term (current) drug therapy; M47.812 Spondylosis without myelopathy or radiculopathy, cervical region; M48.9 Spondylopathy, unspecified; K21.9 Gastro-esophageal reflux disease without esophagitis; E78.00 Pure hypercholesterolemia, unspecified; I10 Essential (primary) hypertension; Z96.89 Presence of other specified functional implants
CPT/HCPCS: 20610; 01991; 64483; 72202; J7120

== ENCOUNTER 2023-04-06 08:29 | Day surgery (SDC) | payer MEDICARE, OTHER, SELFPAY ==
[2023-04-06] VITALS (7 sets, daily range): BP systolic 89–132; BP diastolic 64–85; PULSE 65–75; RESP 16–18; TEMP 36.2–36.7; O2SAT 93–98; BMI 53.8
--- NOTE | 2023-04-06 09:48 | RAD_ITS ---
PROCEDURE: Bilateral SI joint injections. DATE OF EXAMINATION: April 06, 2023. INDICATION: Female, 77 years old. Chronic pain. FLUOROSCOPY TIME (if supplied): (7 seconds) minutes/seconds. 5.99 mGy. 3 images were submitted. RAD/Fluoro Guided Needle Placement IMPRESSION: Fluoroscopic services provided for bilateral sacroiliac joint injection. Electronically Signed: Sam Blackmon MD at 11:02 EST ,
[2023-04-06] MEDS: Lidocaine 1% (20 ml mdv) 20 ML Vial (09:50)
[2023-04-06] MEDS: MethylPREDNISolone Acetate 80 MG/ML Vial (09:50)
--- NOTE | 2023-04-06 09:59 | PCM.OPRPT ---
Report of Operation Date of Procedure: 04/06/23 Description of Surgical Findings:: PREOPERATIVE DIAGNOSES: 1.Sacroiliitis. 2.Sacroiliac joint dysfunction. POSTOPERATIVE DIAGNOSES: 1.Sacroiliitis. 2.Sacroiliac joint dysfunction. PROCEDURE PERFORMED: Bilateral sacroiliac joint steroid injection under fluoroscopy guidance. ANESTHESIA: MAC. BLOOD LOSS: Minimal. COMPLICATIONS: None. DESCRIPTION OF PROCEDURE: History and physical of today was reviewed. Risks and benefits of the procedure were explained. The patient understood and agreed to the procedure. Informed consent was obtained. IV inserted per routine protocol. The patient was taken to the operating room and placed in the prone position with a pillow positioned underneath the abdomen. The lower back and buttock area was prepped and draped in a sterile fashion using iodine x3. Under fluoroscopy guidance on an AP view, the bilateral SI joint was visualized. The skin and subcutaneous tissue was anesthetized with approximately 3 mL of 1% lidocaine using a 25-gauge regular needle. Under direct visualization with fluoroscopy at approximately 15-degree angle, using a 22-gauge 3-1/2-inch spinal needle, the needle was advanced via the skin. The tip of the needle was maneuvered and directed towards the inferior one-third of the posterior SI joint. Once the tip of the needle was at the vicinity of the joint, after negative aspiration for blood or CSF, a total of 2 mL of contrast was injected to confirm correct placement of the needle as well as cephalocaudal spread. Confirmation was obtained on AP as well as oblique view. After repeated negative aspiration and confirmation, a total of 9 mL of preservative-free 0.25% Marcaine with 80 mg of Depo-Medrol was injected in and around the SI joint bilaterally in divided doses. The needle was then removed intact. The patient experienced no sign or symptoms of intrathecal or intravascular injection. The patient experienced no paresthesia. The procedure was completed without any apparent difficulty or any complications. The patient appeared to tolerate it well. ASSESSMENT AND PLAN: This is a 77-year-old female with sacroiliitis and SI joint dysfunction status post bilateral sacroiliac joint steroid injection under fluoroscopic guidance, patient will continue her current medications, patient will follow in approximately 2 weeks for reevaluation.
== END 2023-04-06 10:48 | disposition home or self-care (01) ==
LOC: SDC 08:30 → AC 08:33
PROVIDERS: Referring Provider Anesthesiology Pain Medicine; Visit Provider Anesthesiology Pain Medicine
PROC: 3E0U3BZ Introduction of Anesthetic Agent into Joints, Percutaneous Approach (ICD-10-PCS; CPT 64451; principal; 2023-04-06 10:15)
DX: M46.1 Sacroiliitis, not elsewhere classified (principal); Z96.89 Presence of other specified functional implants; Z98.1 Arthrodesis status; I10 Essential (primary) hypertension
CPT/HCPCS: 20610; 76000; 77002; J7120